=== PATIENT | female | born 1975 | race Caucasian/White ===

== ENCOUNTER 2020-04-17 13:54 | Emergency (ER) | payer SELFPAY ==
[~2020-04-17] VITALS: Ht 160 cm; Wt 102.0 kg
[2020-04-17] MEDS ORDERED: ONDANSETRON HCL 4MG/2ML INJ IV STA (14:27)
[2020-04-17] MEDS ORDERED: MORPHINE SULFATE 4 MG/ML CPJ (NOT FOR IM USE) IV STA (14:27)
[2020-04-17] MEDS ORDERED: SODIUM CHLORIDE 0.9% 1,000 ML IV ONE (14:30)
[2020-04-17 15:02] LABS: BASOPHILS % 0.4 % (0.0-2.0); EOSINOPHILS % 0.5 % (0.0-5.0); HEMATOCRIT. 36.6 % (36.0-48.0); HEMOGLOBIN. 12.4 g/dL (12.0-16.0); LYMPHOCYTES % 23.7 % (20.0-50.0); MEAN CORPUSCULAR HEMOGLOBIN 31.3 pg (28.0-32.0); MEAN CORPUSCULAR VOLUME 92.6 fL (81.0-99.0); NEUTROPHILS % 70.4 % (40.0-76.0); PLATELET 201 x1000/uL (130-400); RED BLOOD CELL COUNT 3.96 mill/uL (4.2-5.4)
[2020-04-17 15:10] LABS: CHLORIDE 108 mEq/L (98-107)
[2020-04-17 15:13] LABS: PROTHROMBIN TIME 10.4 sec (9.6-11.0)
[2020-04-17 15:17] LABS: HCG SCREEN NEGATIVE
[2020-04-17] MEDS ORDERED: KETOROLAC 30MG/ML VIAL IV ONE (16:00)
[2020-04-17 18:25] VITALS: BP 148/76
== END 2020-04-17 18:30 | disposition home or self-care (01) ==
LOC: ER 13:54
DX: S82.401A Unspecified fracture of shaft of right fibula, initial encounter for closed fracture (principal); S20.219A Contusion of unspecified front wall of thorax, initial encounter; R00.0 Tachycardia, unspecified; V49.88XA Car occupant (driver) (passenger) injured in other specified transport accidents, initial encounter; Y93.89 Activity, other specified; Y92.89 Other specified places as the place of occurrence of the external cause; Y99.8 Other external cause status
CPT/HCPCS: 36415; 71045; 71260; 72125; 73562; 73590; 74177; 80053; 81025; 84703; 85025; 85610; 93005; 96361; 96374; 99285; J1885; J2270; J2405; J7030; L1830